=== PATIENT | male | born 1935 | race Asian ===

== ENCOUNTER 2016-09-30 10:34 | Outpatient (CLI) | payer OTHER | END 2016-09-30 10:39 | disposition short-term general hospital (02) | LOC: AMB 10:34 | DX: R07.89 Other chest pain (principal) | CPT/HCPCS: A0425; A0427 ==

== ENCOUNTER 2016-09-30 10:39 | Emergency (ER) | payer OTHER ==
[~2016-09-30] VITALS: Ht 167.6 cm; Wt 90.7 kg
[2016-09-30 10:40] VITALS: TEMP 97.7
[2016-09-30 11:01] LABS: PLATELET COUNT 149 K/uL (142-355)
[2016-09-30 11:08] LABS: POTASSIUM 4.7 mmol/L (3.6-5.2)
[2016-09-30 11:38] LABS: PARTIAL THROMBOPLASTIN TIME 29.2 SECONDS (24.5-33.6)
[2016-09-30 12:40] VITALS: BP 135/90
== END 2016-09-30 12:40 | disposition home or self-care (01) ==
LOC: ED 10:39
DX: M94.0 Chondrocostal junction syndrome [Tietze] (principal)
CPT/HCPCS: 36415; 80053; 82550; 84484; 85027; 85610; 85730; 86318; 93005; 99283

== ENCOUNTER 2016-10-07 22:37 | Emergency (ER) | payer OTHER ==
[~2016-10-07] VITALS: Ht 170.2 cm; Wt 92.1 kg
[2016-10-07 23:20] VITALS: BP 140/88; TEMP 98.6
== END 2016-10-07 23:30 | disposition home or self-care (01) ==
LOC: ED 22:37
PROC: 0HQGXZZ Repair Left Hand Skin, External Approach (ICD-10-PCS; principal; 2016-10-07)
DX: S61.412A Laceration without foreign body of left hand, initial encounter (principal); W45.0XXA Nail entering through skin, initial encounter; Y92.098 Other place in other non-institutional residence as the place of occurrence of the external cause
CPT/HCPCS: 99283

== ENCOUNTER 2016-10-20 04:39 | Emergency (ER) | payer OTHER ==
[~2016-10-20] VITALS: Ht 170.2 cm; Wt 90.7 kg
[2016-10-20 05:02] VITALS: BP 148/73; TEMP 98.9
== END 2016-10-20 05:04 | disposition home or self-care (01) ==
LOC: ED 04:39
DX: Z48.02 Encounter for removal of sutures (principal)

== ENCOUNTER 2016-12-01 04:02 | Emergency (ER) | payer OTHER ==
[~2016-12-01] VITALS: Ht 162.6 cm; Wt 90.7 kg
[2016-12-01 07:04] VITALS: BP 146/81; TEMP 98
== END 2016-12-01 07:05 | disposition short-term general hospital (02) ==
LOC: ED 04:02
DX: S00.212A Abrasion of left eyelid and periocular area, initial encounter (principal); H54.0 Blindness, both eyes; Y04.2XXA Assault by strike against or bumped into by another person, initial encounter; Y92.098 Other place in other non-institutional residence as the place of occurrence of the external cause
CPT/HCPCS: 99284

== ENCOUNTER 2016-12-01 07:13 | Outpatient (CLI) | payer OTHER | END 2016-12-01 08:55 | disposition short-term general hospital (02) | LOC: AMB 07:13 | DX: S00.212A Abrasion of left eyelid and periocular area, initial encounter (principal); H54.0 Blindness, both eyes; Y04.2XXA Assault by strike against or bumped into by another person, initial encounter; Y92.098 Other place in other non-institutional residence as the place of occurrence of the external cause | CPT/HCPCS: A0425; A0427 ==

== ENCOUNTER 2016-12-06 00:33 | Outpatient (CLI) | payer OTHER ==
[2016-12-06] MEDS ORDERED: AMLO2.5T PO (00:44)
[2016-12-06] MEDS ORDERED: FINASTERIDE5 MG PO (00:45)
[2016-12-06] MEDS ORDERED: REMERON SOLTAB15 MG PO (00:45)
[2016-12-06] MEDS ORDERED: MUCUS RELIEF400 M1 PO (00:47)
[2016-12-06] MEDS ORDERED: FUROSEMIDE40 MG PO (00:47)
[2016-12-06] MEDS ORDERED: MELOXICAM7.5 MG PO (00:47)
== END 2016-12-06 00:38 | disposition short-term general hospital (02) ==
LOC: AMB 00:33
DX: M79.604 Pain in right leg (principal); M25.512 Pain in left shoulder
CPT/HCPCS: A0425; A0429

== ENCOUNTER 2016-12-06 00:40 | Emergency (ER) | payer OTHER ==
[~2016-12-06] VITALS: Ht 167.6 cm; Wt 83.9 kg
[2016-12-06] MEDS ORDERED: AMLO2.5T PO (00:44)
[2016-12-06] MEDS ORDERED: REMERON SOLTAB15 MG PO (00:45)
[2016-12-06] MEDS ORDERED: FINASTERIDE5 MG PO (00:45)
[2016-12-06] MEDS ORDERED: MELOXICAM7.5 MG PO (00:47)
[2016-12-06] MEDS ORDERED: MUCUS RELIEF400 M1 PO (00:47)
[2016-12-06] MEDS ORDERED: FUROSEMIDE40 MG PO (00:47)
[2016-12-06 02:48] LABS: PLATELET COUNT 190 K/uL (142-355)
[2016-12-06 02:53] LABS: POTASSIUM 3.5 mmol/L (3.6-5.2)
[2016-12-06 04:53] VITALS: BP 155/74; TEMP 97.7
== END 2016-12-06 04:56 | disposition home or self-care (01) ==
LOC: ED 00:40
PROVIDERS: Emergency Medicine
DX: M13.89 Other specified arthritis, multiple sites (principal); M62.81 Muscle weakness (generalized)
CPT/HCPCS: 80053; 84550; 85027; 96361; 96374; 96375; 99284; J1885; J2270; J2930

== ENCOUNTER 2016-12-08 08:52 | Emergency (ER) | payer OTHER ==
[~2016-12-08] VITALS: Ht 167.6 cm; Wt 90.7 kg
[~2016-12-08 08:52] MED LIST: AMLO2.5T PO; FINASTERIDE5 MG PO; FUROSEMIDE40 MG PO; MELOXICAM7.5 MG PO; MUCUS RELIEF400 M1 PO; REMERON SOLTAB15 MG PO
[2016-12-08] MEDS ORDERED: PRED20TA27 PO (09:41)
[2016-12-08 10:06] LABS: PLATELET COUNT 215 K/uL (142-355)
[2016-12-08 10:09] LABS: POTASSIUM 3.6 mmol/L (3.6-5.2)
[2016-12-08] MEDS ORDERED: HYDR5TAB9 PO (10:09)
[2016-12-08 14:43] VITALS: BP 181/90; TEMP 98.7
== END 2016-12-08 14:53 | disposition home or self-care (01) ==
LOC: ED 08:52
DX: G45.8 Other transient cerebral ischemic attacks and related syndromes (principal); R00.1 Bradycardia, unspecified
CPT/HCPCS: 36415; 80053; 80320; 81000; 82550; 84484; 85027; 93005; 99284

== ENCOUNTER 2017-05-03 09:40 | Outpatient (CLI) | payer OTHER ==
[~2017-05-03 09:40] MED LIST changes: +HYDR5TAB9 PO; +PRED20TA27 PO
== END 2017-05-03 09:45 | disposition short-term general hospital (02) ==
LOC: AMB 09:40
DX: R07.81 Pleurodynia (principal); R07.89 Other chest pain; W01.0XXA Fall on same level from slipping, tripping and stumbling without subsequent striking against object, initial encounter; Y92.098 Other place in other non-institutional residence as the place of occurrence of the external cause
CPT/HCPCS: A0425; A0427

== ENCOUNTER 2017-05-03 09:50 | Emergency (ER) | payer OTHER ==
[~2017-05-03] VITALS: Ht 167.6 cm; Wt 86.2 kg
[2017-05-03 09:50] VITALS: TEMP 97
[2017-05-03 10:19] LABS: PLATELET COUNT 234 K/uL (142-355)
[2017-05-03 11:08] LABS: POTASSIUM 3.6 mmol/L (3.6-5.2)
[2017-05-03 14:54] VITALS: BP 142/74
== END 2017-05-03 14:54 | disposition home or self-care (01) ==
LOC: ED 09:50
PROVIDERS: Specialist
DX: S20.212A Contusion of left front wall of thorax, initial encounter (principal); R00.1 Bradycardia, unspecified; I45.10 Unspecified right bundle-branch block; W19.XXXA Unspecified fall, initial encounter
CPT/HCPCS: 36415; 80053; 82550; 84484; 85027; 93005; 96374; 99284; J1885

== ENCOUNTER 2017-05-07 02:13 | Emergency (ER) | payer OTHER ==
[~2017-05-07] VITALS: Ht 177.8 cm; Wt 97.5 kg
[2017-05-07 03:11] LABS: POTASSIUM 3.7 mmol/L (3.6-5.2)
[2017-05-07 04:43] VITALS: BP 149/71; TEMP 98.2
[2017-05-07 08:40] LABS: PLATELET COUNT 217 K/uL (142-355)
== END 2017-05-07 05:00 | disposition home or self-care (01) ==
LOC: ED 02:13
DX: J18.9 Pneumonia, unspecified organism (principal); I50.9 Heart failure, unspecified; R00.1 Bradycardia, unspecified; I45.10 Unspecified right bundle-branch block
CPT/HCPCS: 36415; 80053; 82550; 82553; 83880; 84484; 85027; 93005; 94664; 94760; 96374; 99284; J0696

== ENCOUNTER 2017-05-17 21:20 | Emergency (ER) | payer OTHER ==
[~2017-05-17] VITALS: Ht 170.2 cm; Wt 81.6 kg
[2017-05-17 21:25] VITALS: TEMP 97.4
[2017-05-17 22:03] LABS: PLATELET COUNT 163 K/uL (142-355)
[2017-05-17 22:19] LABS: POTASSIUM 3.8 mmol/L (3.6-5.2); SODIUM 135 mmol/L (136-145)
[2017-05-17 22:23] LABS: PARTIAL THROMBOPLASTIN TIME 30.4 SECONDS (24.5-33.6)
[2017-05-17 23:55] VITALS: BP 174/91
== END 2017-05-18 00:09 | disposition home or self-care (01) ==
LOC: ED 21:20
PROVIDERS: Internal Medicine
DX: M94.0 Chondrocostal junction syndrome [Tietze] (principal); G47.09 Other insomnia; I45.10 Unspecified right bundle-branch block
CPT/HCPCS: 36415; 80053; 82550; 82553; 84484; 85027; 85379; 85610; 85730; 93005; 96374; 99284; J2270

== ENCOUNTER 2017-06-05 05:20 | Outpatient (CLI) | payer OTHER | END 2017-06-05 05:23 | disposition short-term general hospital (02) | LOC: AMB 05:20 | DX: M79.89 Other specified soft tissue disorders (principal) | CPT/HCPCS: A0425; A0427 ==

== ENCOUNTER 2017-06-05 05:27 | Emergency (ER) | payer OTHER ==
[~2017-06-05] VITALS: Ht 167.6 cm; Wt 90.7 kg
[2017-06-05 06:19] LABS: POTASSIUM 3.4 mmol/L (3.6-5.2)
[2017-06-05 08:35] VITALS: BP 142/80; TEMP 98
== END 2017-06-05 08:30 | disposition home or self-care (01) ==
LOC: ED 05:27
PROVIDERS: Specialist
DX: M10.9 Gout, unspecified (principal)
CPT/HCPCS: 80048; 84550; 99283

== ENCOUNTER 2017-09-03 13:34 | Emergency (ER) | payer OTHER ==
[~2017-09-03] VITALS: Ht 172.7 cm; Wt 88.5 kg
[2017-09-03] MEDS ORDERED: ALLO100T22 PO (14:02)
[2017-09-03] MEDS ORDERED: ASPIRIN325 M1 PO (14:04)
[2017-09-03] MEDS ORDERED: [UNRECOGNIZED DRUG - OTHER] PO (14:06)
[2017-09-03 17:29] LABS: PLATELET COUNT 136 K/uL (142-355)
[2017-09-03 17:49] LABS: POTASSIUM 4.1 mmol/L (3.6-5.2)
[2017-09-03 19:50] VITALS: BP 134/71; TEMP 97.8
== END 2017-09-03 19:55 | disposition short-term general hospital (02) ==
LOC: ED 13:34
PROVIDERS: Specialist
DX: S72.012A Unspecified intracapsular fracture of left femur, initial encounter for closed fracture (principal); I45.19 Other right bundle-branch block; W17.2XXA Fall into hole, initial encounter; Y92.89 Other specified places as the place of occurrence of the external cause
CPT/HCPCS: 80053; 81000; 82550; 82553; 83735; 84100; 84484; 85027; 93005; 96374; 96375; 96376; 99284; J1170; J2270; J2405

== ENCOUNTER 2017-09-03 19:47 | Outpatient (CLI) | payer OTHER ==
[~2017-09-03 19:47] MED LIST changes: +ALLO100T22 PO; +ASPIRIN325 M1 PO; +[UNRECOGNIZED DRUG - OTHER] PO
== END 2017-09-03 20:33 | disposition short-term general hospital (02) ==
LOC: AMB 19:47
DX: S72.012A Unspecified intracapsular fracture of left femur, initial encounter for closed fracture (principal); I45.19 Other right bundle-branch block; W17.2XXA Fall into hole, initial encounter; Y92.89 Other specified places as the place of occurrence of the external cause
CPT/HCPCS: A0425; A0427

== ENCOUNTER 2017-11-05 13:20 | Emergency (ER) | payer OTHER ==
[~2017-11-05] VITALS: Ht 167.6 cm; Wt 81.6 kg
[2017-11-05 13:25] VITALS: TEMP 98
[2017-11-05 16:09] VITALS: BP 136/74
== END 2017-11-05 16:09 | disposition home or self-care (01) ==
LOC: ED 13:20
DX: N40.1 Benign prostatic hyperplasia with lower urinary tract symptoms (principal)
CPT/HCPCS: 51702; 81000; 99283

== ENCOUNTER 2017-11-07 08:41 | Emergency (ER) | payer OTHER ==
[~2017-11-07] VITALS: Ht 167.6 cm; Wt 81.6 kg
[2017-11-07 08:58] VITALS: TEMP 98.1
[2017-11-07 09:27] VITALS: BP 152/70
== END 2017-11-07 09:28 | disposition home or self-care (01) ==
LOC: ED 08:41
PROC: 0T9B70Z Drainage of Bladder with Drainage Device, Via Natural or Artificial Opening (ICD-10-PCS; principal; 2017-11-07)
DX: T83.038A Leakage of other urinary catheter, initial encounter (principal)
CPT/HCPCS: 51702; 99282

== ENCOUNTER 2018-09-28 16:02 | Emergency (ER) | payer OTHER ==
[~2018-09-28] VITALS: Ht 167.6 cm; Wt 81.6 kg
[2018-09-28 16:05] VITALS: TEMP 97.7
[2018-09-28 17:01] LABS: PLATELET COUNT 199 K/uL (142-355)
[2018-09-28 17:08] LABS: POTASSIUM 3.8 mmol/L (3.6-5.2); SODIUM 140 mmol/L (136-145)
[2018-09-28 18:44] VITALS: BP 161/84
== END 2018-09-28 19:20 | disposition home or self-care (01) ==
LOC: ED 16:02
PROVIDERS: Family Medicine
DX: J18.8 Other pneumonia, unspecified organism (principal); J44.9 Chronic obstructive pulmonary disease, unspecified; I49.8 Other specified cardiac arrhythmias; R06.02 Shortness of breath
CPT/HCPCS: 80053; 81000; 82550; 83880; 84484; 85027; 85379; 93005; 94664; 96365; 96375; 99284; J0696; J2930

== ENCOUNTER 2018-11-03 12:51 | Emergency (ER) | payer OTHER ==
[~2018-11-03] VITALS: Ht 170.2 cm; Wt 88.2 kg
[2018-11-03 13:59] LABS: PLATELET COUNT 158 K/uL (142-355)
[2018-11-03] MEDS ORDERED: BP MEDS PO (14:42)
[2018-11-03 15:13] VITALS: BP 164/91; TEMP 97.9
== END 2018-11-03 15:13 | disposition home or self-care (01) ==
LOC: ED 12:51
PROVIDERS: Emergency Medicine
DX: K62.5 Hemorrhage of anus and rectum (principal)
CPT/HCPCS: 80053; 82150; 82272; 83690; 85027; 99283

== ENCOUNTER 2019-03-01 09:48 | Emergency (ER) | payer OTHER ==
[~2019-03-01] VITALS: Ht 170.2 cm; Wt 90.7 kg
[~2019-03-01 09:48] MED LIST changes: +BP MEDS PO
[2019-03-01 09:59] VITALS: TEMP 98.1
[2019-03-01 11:19] LABS: PLATELET COUNT 65 K/uL (142-355)
[2019-03-01 11:27] LABS: POTASSIUM 3.2 mmol/L (3.6-5.2)
[2019-03-01 12:34] VITALS: BP 140/62
== END 2019-03-01 12:40 | disposition home or self-care (01) ==
LOC: ED 09:48
PROVIDERS: Family Medicine
DX: S50.01XA Contusion of right elbow, initial encounter (principal); E87.6 Hypokalemia; W18.39XA Other fall on same level, initial encounter; Y92.89 Other specified places as the place of occurrence of the external cause
CPT/HCPCS: 80053; 81000; 85027; 96372; 99283; J2175

== ENCOUNTER 2020-01-03 16:59 | Emergency (ER) | payer OTHER ==
[~2020-01-03] VITALS: Ht 170.2 cm; Wt 90.7 kg
[2020-01-03 17:22] VITALS: TEMP 99.4
[2020-01-03 18:29] LABS: PLATELET COUNT 235 K/uL (142-355)
[2020-01-03 18:45] LABS: POTASSIUM 3.6 mmol/L (3.6-5.2)
[2020-01-03 20:00] VITALS: BP 120/65
== END 2020-01-03 20:00 | disposition home or self-care (01) ==
LOC: ED 16:59
PROVIDERS: Family Medicine
DX: M10.9 Gout, unspecified (principal)
CPT/HCPCS: 36415; 80053; 84550; 85027; 96374; 96375; 99284; J1885; J2930

== ENCOUNTER 2020-01-13 22:45 | Emergency (ER) | payer OTHER ==
[~2020-01-13] VITALS: Ht 172.7 cm; Wt 99.8 kg
[2020-01-13 23:00] VITALS: TEMP 98.7
[2020-01-14 01:29] VITALS: BP 116/58
== END 2020-01-14 01:31 | disposition home or self-care (01) ==
LOC: ED 22:45
DX: M10.9 Gout, unspecified (principal); S50.01XA Contusion of right elbow, initial encounter
CPT/HCPCS: 96372; 99282; J1885

== ENCOUNTER 2020-01-19 14:32 | Emergency (ER) | payer OTHER ==
[~2020-01-19] VITALS: Ht 172.7 cm; Wt 99.8 kg
[2020-01-19 14:32] VITALS: TEMP 99.1
[2020-01-19 16:52] VITALS: BP 106/65
== END 2020-01-19 16:52 | disposition home or self-care (01) ==
LOC: ED 14:32
PROC: 0HQ1XZZ Repair Face Skin, External Approach (ICD-10-PCS; principal; 2020-01-19)
DX: S01.412A Laceration without foreign body of left cheek and temporomandibular area, initial encounter (principal); F10.129 Alcohol abuse with intoxication, unspecified; Y90.1 Blood alcohol level of 20-39 mg/100 ml; X99.1XXA Assault by knife, initial encounter; Y92.89 Other specified places as the place of occurrence of the external cause
CPT/HCPCS: 80320; 90471; 90715; 99284

== ENCOUNTER 2020-01-31 14:31 | Emergency (ER) | payer OTHER ==
[~2020-01-31] VITALS: Ht 172.7 cm; Wt 99.8 kg
[2020-01-31 15:48] VITALS: BP 118/61; TEMP 98
== END 2020-01-31 17:15 | disposition home or self-care (01) ==
LOC: ED 14:31
DX: Z48.02 Encounter for removal of sutures (principal)

== ENCOUNTER 2020-11-01 16:31 | Emergency (ER) | payer OTHER ==
[~2020-11-01] VITALS: Ht 172.7 cm; Wt 99.8 kg
[2020-11-01 16:45] VITALS: BP 137/80; TEMP 97.6
== END 2020-11-01 19:35 | disposition home or self-care (01) ==
LOC: ED 16:31
PROC: 2W3LX1Z Immobilization of Right Lower Extremity using Splint (ICD-10-PCS; principal; 2020-11-01)
DX: M25.561 Pain in right knee (principal); G89.29 Other chronic pain; Z96.651 Presence of right artificial knee joint
CPT/HCPCS: 96372; 99283; J1885; J2930

== ENCOUNTER 2020-12-29 09:44 | Emergency (ER) | payer OTHER ==
[~2020-12-29] VITALS: Ht 172.7 cm; Wt 83.9 kg
[2020-12-29 09:52] VITALS: TEMP 97.4
[2020-12-29 10:36] VITALS: BP 152/70
== END 2020-12-29 11:07 | disposition home or self-care (01) ==
LOC: ED 09:44
DX: M17.11 Unilateral primary osteoarthritis, right knee (principal); Z96.651 Presence of right artificial knee joint
CPT/HCPCS: 96372; 99283; J1885

== ENCOUNTER 2021-04-03 14:07 | Inpatient (IN) | payer OTHER ==
[~2021-04-03] VITALS: Ht 172.7 cm; Wt 83.6 kg
[2021-04-03 14:09] VITALS: BP 141/64; TEMP 97.4
[2021-04-03 14:29] LABS: PLATELET COUNT 249 K/uL (142-355)
[2021-04-03 14:44] LABS: POTASSIUM 4.3 mmol/L (3.6-5.2)
[2021-04-03 15:30] LABS: PARTIAL THROMBOPLASTIN TIME 24.9 SECONDS (24.5-33.6)
[2021-04-03 17:23] VITALS: BP 141/64; TEMP 97.3; Ht 172.7 cm; Wt 83.6 kg
[2021-04-03 20:00] VITALS: BP 140/74; TEMP 98.8
--- NOTE | 2021-04-03 20:30 | NUR ---
22 G TO RIGHT HAND STARTED X'S TWO ATTEMPTS W/O DIFFUCULTY. SITE PATENT.
[2021-04-03 23:54] VITALS: BP 106/64; TEMP 97.7
[2021-04-04 04:25] VITALS: BP 117/75; TEMP 97.7
[2021-04-04 08:00] VITALS: BP 152/69; TEMP 97.3
[2021-04-04] MEDS ORDERED: ALLO300T23 PO (14:34)
[2021-04-04] MEDS ORDERED: TROSPIUM CL20 MG PO (14:36)
[2021-04-04] MEDS ORDERED: DOCU100C10 PO (14:37)
[2021-04-04] MEDS ORDERED: MOBIC15 MG PO (14:37)
[2021-04-04] MEDS ORDERED: NIFE60TA5 PO (14:40)
[2021-04-04] MEDS ORDERED: TERAZOSIN1 MG PO (14:40)
[2021-04-04 16:00] VITALS: BP 162/70; TEMP 97.3
[2021-04-04 16:30] LABS: PLATELET COUNT 222 K/uL (142-355)
[2021-04-04 16:48] LABS: POTASSIUM 4.7 mmol/L (3.6-5.2)
[2021-04-04 20:00] VITALS: BP 143/59; TEMP 98.1
[2021-04-04 23:35] VITALS: BP 125/74; TEMP 98.2
[2021-04-05 04:00] VITALS: BP 108/61; TEMP 98.5
[2021-04-05 05:34] LABS: PLATELET COUNT 208 K/uL (142-355)
[2021-04-05 05:49] LABS: POTASSIUM 4.3 mmol/L (3.6-5.2)
--- NOTE | 2021-04-05 06:46 | NUR ---
PT WAS MEDICATED WITH MORPHINE 1 MG IVSP FOR COMPLAINTS OF BACK AND LEG PAIN.
[2021-04-05 08:00] VITALS: BP 123/56; TEMP 97.9
[2021-04-05 12:00] VITALS: BP 163/91; TEMP 97.8
--- NOTE | 2021-04-05 15:43 | NUR ---
PT ALERT AND ORIENTED X4. LAYING HIGH FOWLERS IN BED WITH RIGHT LEG ELEVATED ON PILLOW R/T PELVIC AND KNEE PAIN R/T HX OF HIP/KNEE REPLACEMENT. PT C/O PAIN, ADMINISTERED MORPHINE ORDERED AT 0845. AM MEDS ADMINISTERED AND PT TOLERATED WELL. PTS CREATININE LEVEL 5.3, PER PHARMACY ALLOPURINOL WILL BE ON HOLD PENDING NEXT CREATININE LEVEL. HCP(JAZZY) NOTIFIED. PT HAS 22GA TO RIGHT HAND INTACT WITH NO SWELLING OR REDNESS OR LEAKING NOTED AT SITE. NS INFUSING AT 100ML/HR. PT HAS URINAL AT BEDSIDE AND WEARS DEPENDS. PER HCP PT BEING TRANSFERRED TO [place] TO THE [facility]. ACCEPTING PHYSICIAN, DR MADISON POSADA. TRANSPORT ARRANGED WITH [facility]. CONTACTED PTS JAYLA AYALA(RELATIVE)CALLED AND GIVEN AN UPDATE ON PTS STATUS. PT CLEANED AND CHANGED PRIOR TO TRANSPORT. PTS IV SITE, 22GA TO RIGHT HAND REMAINS INTACT AND AN EXTRA 1 LITER OF NS IVF SENT WITH PT. ADMINISTERED HYDROCODONE FOR PAIN ORDERED AT 1333. PER HCP ADMINISTER MORPHINE 2MG IV X1 DOSE FOR PAIN AT 1430 PRIOR TO TRANSPORT. [facility] TRANSPORTED PT OUT OF FACILITY VIA [facility] AT 1500. PT HAD PERSONAL BELONGINGS; CLOTHES, SHOES, CELL PHONE AND CONTACT NUMBERS IN BAGS WITH HIS PT HAM SMOKER EACH BAG, X3 BAGS. CALLED THE [facility] IN [place] AND GAVE REPORT TO JONATHAN BERG.
== END 2021-04-05 15:00 | disposition short-term general hospital (02) | DRG 543 ==
LOC: ED 14:07 → MED/SURG 15:30
PROVIDERS: Hospitalist; ADMIT Internal Medicine Endocrinology, Diabetes & Metabolism; ATTEND Internal Medicine
DX: C79.51 Secondary malignant neoplasm of bone (principal); N17.8 Other acute kidney failure; N39.0 Urinary tract infection, site not specified; I12.0 Hypertensive chronic kidney disease with stage 5 chronic kidney disease or end stage renal disease; N18.5 Chronic kidney disease, stage 5; E83.52 Hypercalcemia; Z86.73 Personal history of transient ischemic attack (TIA), and cerebral infarction without residual deficits; M10.9 Gout, unspecified; N40.0 Benign prostatic hyperplasia without lower urinary tract symptoms; E11.22 Type 2 diabetes mellitus with diabetic chronic kidney disease; B96.1 Klebsiella pneumoniae [K. pneumoniae] as the cause of diseases classified elsewhere
CPT/HCPCS: 36415; 80048; 81000; 85008; 85027; 85610; 85730; 87077; 87086; 87088; 87186; 87635; 93005; 96360; 96372; 99284; J0696; J1650; J1885; J2270; J2930; U0003